=== PATIENT | male | born 1980 | race Caucasian/White ===

== ENCOUNTER 2020-11-23 20:34 | Emergency (ER) | payer OTHER ==
[~2020-11-23] VITALS: Ht 180.3 cm; Wt 76.7 kg
[2020-11-23 20:34] VITALS: BP_SYST 132
[2020-11-23 20:56] VITALS: BP_SYST 132
== END 2020-11-23 20:56 ==
LOC: SED 20:34
DX: K40.90 Unilateral inguinal hernia, without obstruction or gangrene, not specified as recurrent (principal); B18.2 Chronic viral hepatitis C
CPT/HCPCS: 99283